=== PATIENT | female | born 1980 | race Caucasian/White ===

== ENCOUNTER → 2017-10-27 | Emergency (ER) | payer OTHER ==
[~2017-10-27] VITALS: Ht 157.5 cm; Wt 53.5 kg
== END | disposition home or self-care (01) ==
LOC: ER 10:04
DX: H01.005 Unspecified blepharitis left lower eyelid (principal); H01.004 Unspecified blepharitis left upper eyelid

== ENCOUNTER → 2021-08-27 | Emergency (ER) | payer OTHER ==
[~2021-08-27] VITALS: Ht 157.5 cm; Wt 53.1 kg
== END | disposition left against medical advice (07) ==
LOC: ER 00:52
DX: Z53.21 Procedure and treatment not carried out due to patient leaving prior to being seen by health care provider (principal)

== ENCOUNTER 2022-11-27 10:28 | Outpatient (CLI) | payer OTHER | END 2022-11-27 10:53 | disposition home or self-care (01) | LOC: MAMO-SONO 10:28 | PROVIDERS: ATTEND Obstetrics & Gynecology | DX: N60.11 Diffuse cystic mastopathy of right breast (principal); N60.12 Diffuse cystic mastopathy of left breast; Z12.31 Encounter for screening mammogram for malignant neoplasm of breast ==

== ENCOUNTER 2023-06-22 12:42 | Outpatient (CLI) | payer OTHER | END 2023-06-22 12:43 | disposition home or self-care (01) | LOC: NUCLEAR 12:42 | PROVIDERS: ATTEND Internal Medicine Hematology & Oncology | DX: D69.6 Thrombocytopenia, unspecified (principal); R16.2 Hepatomegaly with splenomegaly, not elsewhere classified ==

== ENCOUNTER 2024-07-13 10:01 | Outpatient (CLI) | payer OTHER | END 2024-07-13 10:14 | disposition home or self-care (01) | LOC: MAMO-SONO 10:01 | PROVIDERS: ATTEND Obstetrics & Gynecology | DX: N63.10 Unspecified lump in the right breast, unspecified quadrant (principal); N63.20 Unspecified lump in the left breast, unspecified quadrant; R18.0 Malignant ascites ==